=== PATIENT | male | born 1930 | race Caucasian/White ===

== ENCOUNTER 2016-10-07 10:23 | Outpatient (CLI) | payer MEDICARE, OTHER | END 2016-10-07 10:24 | disposition critical access hospital (66) | DX: R06.00 Dyspnea, unspecified (principal) | CPT/HCPCS: A0425; A0427 ==

== ENCOUNTER 2016-10-07 10:44 | Inpatient (IN) | payer MEDICARE, OTHER ==
[2016-10-07] MEDS ORDERED: ALBUTEROL NEB 2.5 MG/3 ML INH STA ×2 (10:53→13:14)
[2016-10-07] MEDS ORDERED: ALBUTEROL NEB 2.5 MG/3 ML INH ONE (11:08)
[2016-10-07] MEDS ORDERED: DEXAMETHASONE 10 MG/ML VIAL PO STA (13:15)
[2016-10-07] MEDS ORDERED: CHERRY SYRUP 10 ML UDC PO ONE (14:01)
[2016-10-07] MEDS ORDERED: DEXAMETHASONE 10 MG/ML VIAL ONE (14:01)
[2016-10-07] MEDS ORDERED: ACETAMINOPHEN 325 MG TABLET PO PRN (14:51)
[2016-10-07] MEDS ORDERED: SODIUM CHLORIDE INHALATION 3 ML NEB INH PRN (14:51)
[2016-10-07] MEDS ORDERED: LEVALBUTEROL 1.25 MG INH PRN (14:51)
[2016-10-07] MEDS: methylPREDNISolone SUCCINATE 40 MG/ML VIAL IVP SCH ×2 (16:24→21:22)
[2016-10-07] MEDS: guaiFENesin 100 MG/5 ML UDC PO SCH ×2 (16:24→21:48)
[2016-10-07] MEDS ORDERED: IPRATROPIUM 0.2 MG/ML NEB INH ONE (16:40)
[2016-10-07] MEDS: IPRATROPIUM 0.2 MG/ML NEB INH SCH (16:45)
[2016-10-07] MEDS: LEVALBUTEROL 1.25 MG INH SCH (16:45)
[2016-10-07] MEDS ORDERED: WARFARIN 5 MG TABLET PO SCH (17:00)
[2016-10-07] MEDS: PANTOPRAZOLE 40 MG TABLET PO SCH (17:12)
[2016-10-07] MEDS: INSULIN ASPART 300 UNIT/3 ML PEN SUBQ SCH ×3 (17:26→21:21)
[2016-10-07] MEDS: BUDESONIDE 0.5 MG/2 ML NEB INH SCH (21:17)
[2016-10-07] MEDS: CARVEDILOL 12.5 MG TABLET PO SCH (21:20)
[2016-10-07] MEDS: FELODIPINE ER 2.5 MG TABLET PO SCH (21:20)
[2016-10-07] MEDS: ATORVASTATIN 40 MG TABLET PO SCH (21:20)
[2016-10-07] MEDS: INSULIN GLARGINE 300 UNIT/3 ML PEN SUBQ SCH (21:21)
[2016-10-07] MEDS: TAMSULOSIN 0.4 MG CAPSULE PO SCH (21:21)
[2016-10-07] MEDS: GABAPENTIN 400 MG CAPSULE PO SCH (21:22)
[2016-10-07] MEDS: SODIUM CHLORIDE FLUSH 0.9% 10 ML SYRINGE IVP SCH (21:32)
[2016-10-08] MEDS: SODIUM CHLORIDE FLUSH 0.9% 10 ML SYRINGE IVP SCH ×3 (04:46→21:26)
[2016-10-08] MEDS: methylPREDNISolone SUCCINATE 40 MG/ML VIAL IVP SCH ×4 (04:46→21:25)
[2016-10-08] MEDS: GABAPENTIN 400 MG CAPSULE PO SCH ×3 (06:04→21:25)
[2016-10-08] MEDS: guaiFENesin 100 MG/5 ML UDC PO SCH ×3 (06:04→21:25)
[2016-10-08] MEDS: PANTOPRAZOLE 40 MG TABLET PO SCH ×2 (06:04→16:58)
[2016-10-08] MEDS: LEVALBUTEROL 1.25 MG INH SCH ×4 (07:12→19:18)
[2016-10-08] MEDS: IPRATROPIUM 0.2 MG/ML NEB INH SCH ×4 (07:12→19:18)
[2016-10-08] MEDS: BUDESONIDE 0.5 MG/2 ML NEB INH SCH ×2 (07:13→19:18)
[2016-10-08] MEDS: INSULIN ASPART 300 UNIT/3 ML PEN SUBQ SCH ×7 (08:25→20:57)
[2016-10-08] MEDS: LOSARTAN 50 MG TABLET PO SCH (08:29)
[2016-10-08] MEDS: LORATADINE 10 MG TABLET PO SCH (08:29)
[2016-10-08] MEDS: CARVEDILOL 12.5 MG TABLET PO SCH ×2 (08:30→20:56)
[2016-10-08] MEDS: FELODIPINE ER 2.5 MG TABLET PO SCH ×2 (08:31→20:56)
[2016-10-08] MEDS: ASPIRIN CHEW 81 MG TABLET PO SCH (08:32)
[2016-10-08] MEDS: POLYETHYLENE GLYCOL 3350 17 GM PACKET PO SCH (08:33)
[2016-10-08] MEDS ORDERED: MONTELUKAST 10 MG TABLET PO SCH (09:00)
[2016-10-08] MEDS ORDERED: SODIUM CHLORIDE 0.9% 1,000 ML IV SCH ×2 (09:00→19:00)
[2016-10-08] MEDS: SODIUM CHLORIDE FLUSH 0.9% 10 ML SYRINGE IVP PRN ×2 (13:59→16:37)
[2016-10-08] MEDS ORDERED: WARFARIN 5 MG TABLET PO SCH (17:00)
[2016-10-08] MEDS: ATORVASTATIN 40 MG TABLET PO SCH (20:56)
[2016-10-08] MEDS: TAMSULOSIN 0.4 MG CAPSULE PO SCH (20:57)
[2016-10-08] MEDS: INSULIN GLARGINE 300 UNIT/3 ML PEN SUBQ SCH (20:58)
[2016-10-09] MEDS: methylPREDNISolone SUCCINATE 40 MG/ML VIAL IVP SCH ×2 (04:29→10:49)
[2016-10-09] MEDS: GABAPENTIN 400 MG CAPSULE PO SCH (06:25)
[2016-10-09] MEDS: guaiFENesin 100 MG/5 ML UDC PO SCH (06:25)
[2016-10-09] MEDS: PANTOPRAZOLE 40 MG TABLET PO SCH (06:25)
[2016-10-09] MEDS: SODIUM CHLORIDE FLUSH 0.9% 10 ML SYRINGE IVP SCH (06:26)
[2016-10-09] MEDS: BUDESONIDE 0.5 MG/2 ML NEB INH SCH (07:08)
[2016-10-09] MEDS: IPRATROPIUM 0.2 MG/ML NEB INH SCH ×2 (07:08→11:17)
[2016-10-09] MEDS: LEVALBUTEROL 1.25 MG INH SCH ×2 (07:08→11:17)
[2016-10-09] MEDS: CARVEDILOL 12.5 MG TABLET PO SCH (08:14)
[2016-10-09] MEDS: FELODIPINE ER 2.5 MG TABLET PO SCH (08:15)
[2016-10-09] MEDS: LORATADINE 10 MG TABLET PO SCH (08:15)
[2016-10-09] MEDS: ASPIRIN CHEW 81 MG TABLET PO SCH (08:15)
[2016-10-09] MEDS: LOSARTAN 50 MG TABLET PO SCH (08:15)
[2016-10-09] MEDS: INSULIN ASPART 300 UNIT/3 ML PEN SUBQ SCH ×5 (08:16→12:48)
[2016-10-09] MEDS: POLYETHYLENE GLYCOL 3350 17 GM PACKET PO SCH (08:19)
[2016-10-09] MEDS ORDERED: INSULIN GLARGINE 300 UNIT/3 ML PEN SUBQ SCH (21:00)
== END 2016-10-09 13:31 | disposition home or self-care (01) | DRG 189 ==
DX: J96.11 Chronic respiratory failure with hypoxia (principal); R79.89 Other specified abnormal findings of blood chemistry; E11.40 Type 2 diabetes mellitus with diabetic neuropathy, unspecified; J44.1 Chronic obstructive pulmonary disease with (acute) exacerbation; I13.2 Hypertensive heart and chronic kidney disease with heart failure and with stage 5 chronic kidney disease, or end stage renal disease; N18.6 End stage renal disease; I50.9 Heart failure, unspecified; E87.2 Acidosis; I27.2 Other secondary pulmonary hypertension; E86.0 Dehydration; N28.9 Disorder of kidney and ureter, unspecified; E78.5 Hyperlipidemia, unspecified; T38.3X5A Adverse effect of insulin and oral hypoglycemic [antidiabetic] drugs, initial encounter; Z86.711 Personal history of pulmonary embolism; Z87.01 Personal history of pneumonia (recurrent); Z85.828 Personal history of other malignant neoplasm of skin; Z79.899 Other long term (current) drug therapy; E11.22 Type 2 diabetes mellitus with diabetic chronic kidney disease; N18.3 Chronic kidney disease, stage 3 (moderate); G47.33 Obstructive sleep apnea (adult) (pediatric); I73.9 Peripheral vascular disease, unspecified; Z66 Do not resuscitate; E11.65 Type 2 diabetes mellitus with hyperglycemia; T38.0X5A Adverse effect of glucocorticoids and synthetic analogues, initial encounter; Y92.230 Patient room in hospital as the place of occurrence of the external cause; Z79.01 Long term (current) use of anticoagulants; Z99.81 Dependence on supplemental oxygen; Z79.4 Long term (current) use of insulin; Z79.82 Long term (current) use of aspirin

== ENCOUNTER 2016-10-19 10:10 | Outpatient (CLI) | payer MEDICARE, OTHER | END 2016-10-19 10:11 | disposition short-term general hospital (02) | DX: R06.02 Shortness of breath (principal) | CPT/HCPCS: A0425; A0427; A0888 ==

== ENCOUNTER 2016-11-12 14:59 | Outpatient (CLI) | payer MEDICARE, OTHER | END 2016-11-12 15:00 | disposition short-term general hospital (02) | LOC: EMS 14:59 | PROVIDERS: ATTEND Surgery | DX: R07.9 Chest pain, unspecified (principal); R06.00 Dyspnea, unspecified | CPT/HCPCS: A0425; A0429 ==